=== PATIENT | male | born 1955 | race Two or more races ===

== ENCOUNTER 2020-07-06 19:16 | Inpatient (IN) | payer OTHER ==
[~2020-07-06] VITALS: Ht 177.8 cm; Wt 83.9 kg
[2020-07-07] MEDS ORDERED: BLOOD SUGAR DIAGNOSTIC 1 EACH STRIP IN ONE (06:00)
[2020-07-07] MEDS ORDERED: MAG HYDROX/AL HYDROX/SIMETH 30 ML UDC PO PRN (06:00)
[2020-07-07] MEDS ORDERED: MAGNESIUM HYDROXIDE 30 ML UDC PO PRN (06:00)
[2020-07-07] MEDS ORDERED: LORAZEPAM 0.5 MG TABLET PO PRN (06:00)
--- NOTE | 2020-07-07 06:15 | NUR ---
GPS ADMISSION NOTE: RECEIVED PT FROM [facility]. PT. ARRIVED AT 0555 VIA GURNEY WITH 2 EMT'S. PT ADMITTED ON A 5150 HOLD FOR DTS. PER HOLD PATIENT'S REPORTED PATIENT LOCKED HIMSELF IN THE ROOM WITH A ROPE AROUND HIS NECK. HAD TO CLIMB IN A WINDOW TO GAIN ACCESS TO THE ROOM. UPON FACE TO FACE ASSESSMENT PT. IS A & O X3, ANXIOUS, RESTLESS, HYPERVERBAL, DISHEVELED, BLUNT AFFECT BUT REDIRECTABLE. NO S/S OF DISTRESS, SOB. REFUSED PNEUMONIA & FLU VACCINE DESPITE OF EXPLANATIONS. AMBULATORY/STEADY. UNDER PSYCHIATRIC CARE OF SAMMY AND MEDICAL CARE OF JD. BELONGINGS WERE INVENTORIED AND CHECKED FOR CONTRABAND. ALL CONTRABAND REMOVED AND STORED IN HALLWAY LOCKER. SKIN ASSESSMENT & PICTURES DONE. EDUCATED ON PATIENT CALL LIGHT. MEDS ENTERED TO BE RECONCILED. MRSA SWAB COLLECTED & SENT TO LAB. BED LOCKED AND LOW POSITION. ENDORSED TO AM RN FOR CONTINUITY OF CARE. WILL CONTINUE TO MONITOR FOR Q 15 MIN & PRN FOR SAFETY, MOOD & BEHAVIOR.
[2020-07-07 06:52] VITALS: BP 151/92
[2020-07-07] MEDS ORDERED: FINA5TAB4 PO (07:24)
[2020-07-07] MEDS ORDERED: ARIP10TA9 PO (07:24)
[2020-07-07] MEDS ORDERED: LOSA100T3 PO (07:24)
[2020-07-07] MEDS ORDERED: PARO10TA86 PO (07:24)
[2020-07-07] MEDS ORDERED: TAMS-12 PO (07:24)
[2020-07-07] MEDS ORDERED: NAPR500T6 PO (07:24)
[2020-07-07] MEDS ORDERED: CLON0.5T PO (07:24)
[2020-07-07] MEDS ORDERED: CLONIDINE HCL 0.1 MG TABLET PO PRN (08:00)
--- NOTE | 2020-07-07 08:05 | NUR ---
GPS RN NOTE: NOTIFIED ABOUT THE ADMISSION AT [phone].
[2020-07-07] MEDS: FINASTERIDE (5 MG) 5 MG TABLET PO SCH (08:24)
[2020-07-07] MEDS: NAPROXEN 500 MG TABLET PO SCH ×2 (08:24→16:19)
[2020-07-07] MEDS: TAMSULOSIN 0.4 MG CAP.SR.24H PO SCH (08:24)
[2020-07-07] MEDS: LOSARTAN POTASSIUM 50 MG TABLET PO SCH (08:24)
[2020-07-07 08:46] VITALS: BP 169/104
--- NOTE | 2020-07-07 09:00 | NUR ---
RN NOTE- PT ALERT ORIENTED TO PERSON PLACE TIME PURPOSE DENIES SI HI AH VH, CALM DIRECTABLE PO INTAKE GOOD MED COMPLIANT ISOLATIVE AND GUARDED
--- NOTE | 2020-07-07 09:07 | NUR ---
GARRETT COORDINATION OF CARE: SW contacted [facility] Address: [address] [place] [address], [place] [address] and spoke with Margie, bookkeeper receptionist to provide her with information on pts current psychiatric hospitalization. Per Margie, pt is under the psychiatric treatment of Dr. Donal Sharpe.
--- NOTE | 2020-07-07 09:10 | NUR ---
FAMILY CONTACT: SW contacted pts Angelika ([phone]) to discuss treatment and discharge plan, SW left voicemail for callback.
--- NOTE | 2020-07-07 09:41 | NUR ---
INITIAL DISCHARGE PLAN: Pt [place] to return home ([address] [place] [address] ). SW will help form a safe and proper discharge in collaboration with .
--- NOTE | 2020-07-07 10:16 | NUR ---
GARRETT COORDINATION OF CARE: GARRETT received a call from Dr. Donal Sharpe at [facility] Address: [address] [place] [address], [place] [address] requesting to speak to MD regarding pts treatment and medications. GARRETT provided him with Dr. Obregon's office number. GARRETT also informed Dr. Obregon and provided her with MD's contact number.
[2020-07-07 12:29] LABS: CALCIUM, SERUM 9.2 mg/dL (8.5-10.1); POTASSIUM 4.1 mmol/L (3.5-5.1)
[2020-07-07] MEDS: ARIPIPRAZOLE 5 MG TABLET PO SCH ×3 (14:48→20:34)
[2020-07-07 16:11] VITALS: BP 124/84
[2020-07-07 20:04] VITALS: BP 139/83
[2020-07-07] MEDS: TEMAZEPAM 7.5 MG CAPSULE PO PRN (22:38)
--- NOTE | 2020-07-07 22:39 | NUR ---
RN NOTES: INSOMNIA PATIENT C/O UNABLE TO SLEEP & WANTS TO TAKE SLEEPING MEDICINE. PRN RESTORIL 7.5 MG 1 CAP PO GIVEN. WILL CONTINUE TO MONITOR.
[2020-07-08] MEDS: ACETAMINOPHEN 325 MG TABLET PO PRN ×2 (04:44→21:25)
[2020-07-08 07:56] LABS: BASOPHILS % (AUTO) 0.5 % (0.0-2.0); EOSINOPHILS % (AUTO) 2.1 % (0.0-6.0); HEMATOCRIT 45 % (39-51); HEMOGLOBIN 14.6 g/dL (13.5-17.5); LYMPHOCYTES % (AUTO) 28.6 % (20.0-44.0); MEAN CORPUSCULAR HGB CONC 33 g/dl (31.0-36.0); MEAN CORPUSCULAR VOLUME 93 fL (80-96); MONOCYTES # (AUTO) 0.5 /CMM (0.1-1.30); MONOCYTES % (AUTO) 6.9 % (2.0-12.0); NEUTROPHILS # (AUTO) 4.3 /CMM (1.8-8.9); NEUTROPHILS % (AUTO) 61.9 % (43.0-81.0); PLATELET COUNT (AUTO) 220 /CMM (150-450); WHITE BLOOD COUNT (AUTO) 6.9 K/uL (4.3-11.0)
[2020-07-08 08:00] VITALS: BP_SYST 152; BP_SYST 162; BP_DIAS 90
[2020-07-08] MEDS: NAPROXEN 500 MG TABLET PO SCH ×2 (08:58→17:26)
[2020-07-08] MEDS: ARIPIPRAZOLE 5 MG TABLET PO SCH ×3 (08:58→20:30)
[2020-07-08] MEDS: TAMSULOSIN 0.4 MG CAP.SR.24H PO SCH (08:58)
[2020-07-08] MEDS: FINASTERIDE (5 MG) 5 MG TABLET PO SCH (08:58)
[2020-07-08] MEDS: LOSARTAN POTASSIUM 50 MG TABLET PO SCH (08:58)
[2020-07-08 10:13] LABS: ALBUMIN 4.1 g/dL (3.4-5.0); BILIRUBIN,TOTAL 0.5 mg/dL (0.2-1.0); CALCIUM, SERUM 9.9 mg/dL (8.5-10.1); MAGNESIUM 2.2 mg/dL (1.8-2.4); PHOSPHORUS 4.9 mg/dL (2.5-4.9); POTASSIUM 4.3 mmol/L (3.5-5.1); TOTAL PROTEIN, SERUM 7.8 g/dL (6.4-8.2)
[2020-07-08 10:19] LABS: THYROID STIMULATING HORMONE 2.29 uIU/mL (0.358-3.74)
[2020-07-08] MEDS: HYDROCODONE/APAP 5/325MG TABLET PO PRN (15:47)
--- NOTE | 2020-07-08 15:49 | NUR ---
GPS/RN-NOTES PATIENT C/O 9/10 LOWER BACK PAIN, NORCO 5/325MG P.O GIVEN PRN ORDER. WILL CONT. MONITORING FOR SAFETY AND BEHAVIOR.
[2020-07-08 16:15] VITALS: BP 158/90
[2020-07-08 16:19] LABS: BILIRUBIN,URINE NEGATIVE (NEGATIVE); BLOOD, URINE NEGATIVE Ery/uL (NEGATIVE); COLOR,URINE YELLOW (YELLOW); LEUKOCYTE ESTERASE ,URINE NEGATIVE (NEGATIVE); NITRITE, URINE NEGATIVE (NEGATIVE); PROTEIN,URINE NEGATIVE (NEGATIVE); UGLUCOSE NEGATIVE (NEGATIVE); UROBILINOGEN,URINE 0.2 EU/dL (0.2)
[2020-07-08 21:01] VITALS: BP 136/80
[2020-07-08] MEDS: TEMAZEPAM 7.5 MG CAPSULE PO PRN (22:07)
--- NOTE | 2020-07-08 22:08 | NUR ---
RN NOTES: INSOMNIA PATIENT C/O UNABLE TO SLEEP & WANTS TO TAKE SLEEPING MEDICINE. PRN RESTORIL 7.5 MG 1 CAP PO GIVEN. WILL CONTINUE TO MONITOR.
[2020-07-09] MEDS: HYDROCODONE/APAP 5/325MG TABLET PO PRN ×3 (00:34→19:23)
--- NOTE | 2020-07-09 00:35 | NUR ---
GPS/RN-NOTES PATIENT C/O 7/10 LOWER /UPPER BACK PAIN, NORCO 5/325MG P.O GIVEN PRN ORDER. WILL CONTINUE. MONITORING FOR EFFECTIVNESS.
[2020-07-09 08:00] VITALS: BP 160/86
[2020-07-09] MEDS: ARIPIPRAZOLE 5 MG TABLET PO SCH ×3 (08:20→21:53)
[2020-07-09] MEDS: NAPROXEN 500 MG TABLET PO SCH ×2 (08:20→16:13)
[2020-07-09] MEDS: TAMSULOSIN 0.4 MG CAP.SR.24H PO SCH (08:20)
[2020-07-09] MEDS: FINASTERIDE (5 MG) 5 MG TABLET PO SCH (08:20)
[2020-07-09] MEDS: LOSARTAN POTASSIUM 50 MG TABLET PO SCH (08:28)
--- NOTE | 2020-07-09 09:00 | NUR ---
RN NOTE- PT ALERT ORIENTED TO PERSON PLACE TIME AND PURPOSE DENIES SI HI AH VH INTERACTIVE VISIBLE ON UNIT MED COMPLIANT
[2020-07-09] MEDS: POLYVINYL ALCOHOL 15 ML BOTTLE EACHEYE PRN (15:34)
[2020-07-09 16:00] VITALS: BP 135/80
--- NOTE | 2020-07-09 19:24 | NUR ---
GPS RN NOTE: PAIN RECEIVED PT IN ROOM, PT WAS C/O OF 7/10 BACK PAIN AND WAS RESTLESS, IRRITABLE, REQUESTED NORCO, VSS AT THIS TIME, ADMIN 5MG/325MG NORCO @ 1923, WILL REASSESS AND CONTINUE TO MONITOR Q15MIN FOR SAFETY AND BEHAVIOR.
[2020-07-09 20:00] VITALS: BP 158/81
[2020-07-09 21:00] VITALS: BP 153/97
[2020-07-09] MEDS: SIMVASTATIN 10 MG TABLET PO SCH (21:52)
[2020-07-10] MEDS: HYDROCODONE/APAP 5/325MG TABLET PO PRN ×3 (02:50→15:34)
--- NOTE | 2020-07-10 02:51 | NUR ---
GPS RN NOTE: PAIN PT WOKE UP C/O OF 03/13 LOWER BACK PAIN, REQUESTED NORCO, VSS AT THIS TIME, ADMIN 1TAB 5/325MG NORCO PRN @ 0251, WILL REASSESS AND CONTINUE TO MONITOR Q15MIN FOR SAFETY AND BEHAVIOR
[2020-07-10] MEDS: POLYVINYL ALCOHOL 15 ML BOTTLE EACHEYE PRN (04:02)
[2020-07-10 08:00] VITALS: BP 151/94
[2020-07-10] MEDS: NAPROXEN 500 MG TABLET PO SCH ×2 (08:16→16:09)
[2020-07-10] MEDS: ARIPIPRAZOLE 5 MG TABLET PO SCH ×3 (08:16→20:15)
[2020-07-10] MEDS: LOSARTAN POTASSIUM 50 MG TABLET PO SCH (08:17)
[2020-07-10] MEDS: TAMSULOSIN 0.4 MG CAP.SR.24H PO SCH (08:25)
[2020-07-10] MEDS: FINASTERIDE (5 MG) 5 MG TABLET PO SCH (08:25)
--- NOTE | 2020-07-10 14:10 | NUR ---
UR NOTE: AUTH# [id number] APPROVED FOR 5 DAYS. RVW DUE ON THE . SW Ccontacted Tiffany Aragon Building Principal at [facility] ([phone] ext. [phone]).
--- NOTE | 2020-07-10 14:42 | NUR ---
SW Substance Abuse Intervention: Patient was provided with a brief substance abuse intervention and referred to [facility] [address], [place] [address] ([phone]); [place] [facility] [address], [address], [place] [address] [phone]); [facility] ([phone]); [facility] ([phone]); [facility] ([phone]); and National Suicide Prevention Lifeline ([phone]).
--- NOTE | 2020-07-10 15:55 | NUR ---
RN-CO: NORCO GIVEN FOR C/O PAIN 03/13.
[2020-07-10 16:00] VITALS: BP 146/93
[2020-07-10 20:26] VITALS: BP 168/83
[2020-07-10] MEDS: SIMVASTATIN 10 MG TABLET PO SCH (21:07)
--- NOTE | 2020-07-11 00:36 | NUR ---
RN Note: Patient c/o anxiety ,requested and given Ativan 0.5 mg PO with good effect.
[2020-07-11] MEDS: HYDROCODONE/APAP 5/325MG TABLET PO PRN ×4 (01:25→20:35)
[2020-07-11 08:00] VITALS: BP 149/91
[2020-07-11] MEDS: FINASTERIDE (5 MG) 5 MG TABLET PO SCH (08:21)
[2020-07-11] MEDS: NAPROXEN 500 MG TABLET PO SCH ×2 (08:21→17:21)
[2020-07-11] MEDS: TAMSULOSIN 0.4 MG CAP.SR.24H PO SCH (08:21)
--- NOTE | 2020-07-11 08:22 | NUR ---
RN NOTE:Patient c/o back pain 04/13 medicated with [employer] 5/325 ,will continue to monitor.
[2020-07-11] MEDS: LOSARTAN POTASSIUM 50 MG TABLET PO SCH (08:23)
[2020-07-11] MEDS: ARIPIPRAZOLE 5 MG TABLET PO SCH ×3 (08:23→21:31)
--- NOTE | 2020-07-11 09:24 | NUR ---
UR NOTE: AUTH# [id number] GARRETT conducted a clinical review with Tiffany Aragon Pressure Sealer And Tester at [facility] ([phone] ext. [phone]). GARRETT informed of patient's current medications and labs, progress and treatment plan, and discharge plan for tomorrow. Per family request, GARRETT requested Tiffany to provide online programs for the patient for outpatient therapy. Tiffany stated she will follow up with the patient post discharge.
[2020-07-11 16:00] VITALS: BP 139/94
--- NOTE | 2020-07-11 20:39 | NUR ---
GPS RN NOTE: PAIN PT. C/O OF BACK PAIN 02/10/ ADMINISTERED NORCO PO PRN ORDERED. WILL CONTINUE TO MONITOR
[2020-07-11 21:19] VITALS: BP 137/74
[2020-07-11] MEDS: SIMVASTATIN 10 MG TABLET PO SCH (21:31)
[2020-07-11] MEDS: TEMAZEPAM 7.5 MG CAPSULE PO PRN (23:28)
[2020-07-12] MEDS: HYDROCODONE/APAP 5/325MG TABLET PO PRN ×4 (00:39→17:19)
--- NOTE | 2020-07-12 00:40 | NUR ---
GPS RN NOTE: PAIN PT. C/O OF BACK PAIN 02/10/ ADMINISTERED NORCO PO PRN ORDERED. WILL CONTINUE TO MONITOR
[2020-07-12] MEDS: ACETAMINOPHEN 325 MG TABLET PO PRN (03:52)
--- NOTE | 2020-07-12 03:58 | NUR ---
GPS RN NOTE: HEADACHE PT. C/O OF HEADACHE. ADMINISTERED TYLENOL 650 MG PO PRN ORDERED. WILL CONTINUE TO MONITOR.
[2020-07-12 08:00] VITALS: BP 139/90
[2020-07-12] MEDS: ARIPIPRAZOLE 5 MG TABLET PO SCH ×2 (08:02→16:35)
[2020-07-12] MEDS: FINASTERIDE (5 MG) 5 MG TABLET PO SCH (08:02)
[2020-07-12] MEDS: TAMSULOSIN 0.4 MG CAP.SR.24H PO SCH (08:02)
[2020-07-12] MEDS: NAPROXEN 500 MG TABLET PO SCH ×2 (08:02→16:35)
[2020-07-12] MEDS: LOSARTAN POTASSIUM 50 MG TABLET PO SCH (08:03)
--- NOTE | 2020-07-12 08:06 | NUR ---
Discharge Note: Patient will be discharged back home [address] [place] [address] ([phone]). Patient , Angelika ([phone]) is aware and agreeable with discharge plan and will be providing transportation today at 7PM. Patient is alert and oriented x4 and is aware and agreeable with discharge plan. Patient denies suicidal or homicidal ideation. Patient will be following up with his psychiatrist Dr. Donal Sharpe [facility] [address], [place] [address] ([phone]) and has an appointment scheduled on July 27, 2020 at 11:30AM. Patient is provided with [facility] [address] [place] [address] ([phone]) for primary care physician follow ups. Patient was provided with a brief substance abuse intervention and referred to [facility] [address] [place] [address] ([phone]); [place] [facility] [address], [address], [place] [address] ([phone]); [facility] ([phone]); [facility] ([phone]); [facility] ([phone]); and National Suicide Prevention Lifeline ([phone]).
--- NOTE | 2020-07-12 11:14 | NUR ---
RN-CO: PATIENT IS FOR DISCHARGE. HE HAS APPROPRIATE AFFECT. DENIED SUICIDAL AND HOMICIDAL IDEATION. DENEID AUDITORY AND VISUAL HALLICINATION. CALM AND COOPERATIVE TO CARE. DR DELONG ORDERED TO DISCHARGE PATIENT HOME TODAY AND DISCONTINUE HOLD.NOTED AND CARRIED OUT.PATIENT IS AWARE OF HIS DISCHARGE TODAY. DR RON MILES MEDICALLY CLEARED PT FROM DISCHARGE.
--- NOTE | 2020-07-12 11:49 | NUR ---
RN-CO: PATIENT WAS SEEN BY DR ABELARDO MILLER AND MEDICALLY CLEARED HER FOR DISCHARGE. WROTE PRESCRIPTION.
--- NOTE | 2020-07-12 13:31 | NUR ---
RN-CO: PATIENT REQUESTED NORCO FOR C/O PAIN 03/13.
--- NOTE | 2020-07-12 14:07 | NUR ---
ASADCO: PRESCRIPTIONS WERE FAXED TO [place], [place]. TEL # [phone]
[2020-07-12 16:00] VITALS: BP 149/84
--- NOTE | 2020-07-12 17:21 | NUR ---
RN-CO: NORCO GIVEN FOR PAIN 02/10.
--- NOTE | 2020-07-12 19:15 | NUR ---
RN-CO: PATIENT WAS PICKED UP BY , HE WAS ESCORTED BY STAFF IN THE LOBBY. ALL BELONGINGS AND VALUABLES WERE GIVEN BACK TO HIM PRESCRIPTIONS WERE FAXED TO [facility]( JORGE L [facility]) AND CONFIRMED.PT VERBALIZED UNDERSTANDING THAT HE NEEDS TO HAVE A FOLLOW UP APPOINTMENT WITH PSYCHIATRIST AND STATEMENT PROCESSOR. HE ALSO VERBALIZED THAT HE UNDERSTAND HIS PRESCRIPTIONS.
== END 2020-07-12 19:17 | disposition home or self-care (01) | DRG 885 ==
LOC: GPS 07-07 05:39
PROVIDERS: ADMIT Psychiatry & Neurology Psychosomatic Medicine; ATTEND Nurse Practitioner Acute Care
DX: F31.9 Bipolar disorder, unspecified (principal); E78.5 Hyperlipidemia, unspecified; F90.9 Attention-deficit hyperactivity disorder, unspecified type; I10 Essential (primary) hypertension; N40.0 Benign prostatic hyperplasia without lower urinary tract symptoms; F25.9 Schizoaffective disorder, unspecified; F10.10 Alcohol abuse, uncomplicated; F41.9 Anxiety disorder, unspecified; F12.90 Cannabis use, unspecified, uncomplicated; R73.9 Hyperglycemia, unspecified; T14.91XD Suicide attempt, subsequent encounter; X83.8XXD Intentional self-harm by other specified means, subsequent encounter
CPT/HCPCS: 36415; 71046; 72100-TC; 80048-TC; 80053-TC; 80061-TC; 82962-TC; 83735-TC; 84100-TC; 84443-TC; 85025-TC; 87081-TC